=== PATIENT | male | born 1955 | race Asian ===

== ENCOUNTER 2025-01-17 15:02 | Emergency (ER) | payer MEDICAID ==
[~2025-01-17] VITALS: Ht 172.7 cm; Wt 90.0 kg
[2025-01-17 15:04] VITALS: O2SAT 99
[2025-01-17] MEDS ORDERED: MECLIZINE 25MG TABLET PO ONE (15:45)
[2025-01-17 17:26] LABS: HEMATOCRIT. 35.8 % (42.0-52.0); HEMOGLOBIN. 11.3 g/dL (14.0-18.0); MEAN CORPUSCULAR HGB CONC 31.7 g/dL (31.0-37.0); MEAN CORPUSCULAR VOLUME 94.6 fL (80.0-94.0); MEAN PLATELET VOLUME 10.5 fl (7.4-10.4); PLATELET 127 x1000/uL (130-400); RED BLOOD CELL COUNT 3.78 mill/uL (4.7-6.1); RED CELL DISTRIBUTION WIDTH 14.3 % (11.6-14.6); WHITE BLOOD COUNT 11.3 x1000/uL (4.5-11.0)
[2025-01-17 17:29] LABS: DIFFERENTIAL COMMENT 1
[2025-01-17 17:30] LABS: CHLORIDE 108 mEq/L (98-107); POTASSIUM 5.1 mEq/L (3.5-5.1); SODIUM 139 mEq/L (136-145)
[2025-01-17 17:32] LABS: CALCIUM 9.6 mg/dL (8.7-10.4); CARBON DIOXIDE 19 mEq/L (21-32)
[2025-01-17 17:36] LABS: PROTHROMBIN TIME 10.3 sec (9.6-11.0)
[2025-01-17 17:37] LABS: CREATININE 2.1 mg/dL (0.6-1.3); GLUCOSE 189 mg/dL (70-105); UREA NITROGEN BLOOD 26 mg/dL (9-23)
[2025-01-17 17:39] LABS: ALANINE AMINOTRANSFERASE 38 IU/L (10-49); ASPARTATE AMINOTRANSFERASE 30 IU/L (<34); BILIRUBIN DIRECT < 0.1 mg/dL (<=3.0); BILIRUBIN TOTAL 0.3 mg/dL (0.1-1.0); PROTEIN TOTAL 7.5 g/dL (6.0-8.3)
[2025-01-17] MEDS: MECLIZINE 25MG TABLET PO NR (17:40)
[2025-01-17] MEDS: SODIUM CHLORIDE 0.9% 1,000 ML IV ONE (18:33)
[2025-01-17 19:10] VITALS: TEMP 36.7
[2025-01-17 19:57] LABS: PLATELET ESTIMATE NORMAL
[2025-01-17 21:20] VITALS: BP 144/84; PULSE 87; RESP 14; O2SAT 97
== END 2025-01-17 21:25 | disposition left against medical advice (07) ==
LOC: ER 15:02 → EDBEDREQ 18:31 → EDBEDREQTM 19:39 → EDBEDREQ 19:39 → ER 21:25
DX: N17.9 Acute kidney failure, unspecified (principal); R42 Dizziness and giddiness; E11.9 Type 2 diabetes mellitus without complications
CPT/HCPCS: 99284; 70450; 96360; 80076; 80048; 83690; 85025; 85610; 36415; 74176; 93005; J8597; J7030